=== PATIENT | male | born 1955 ===

== ENCOUNTER 2022-05-02 07:09 | Outpatient (CLI) | payer BC, SELFPAY ==
[2022-05-02 07:59] LABS: Hemoglobin A1C 5.6 % (<5.7)
== END 2022-05-02 07:10 | disposition home or self-care (01) ==
PROVIDERS: PCP Family Medicine; Visit Provider Nurse Practitioner Family
DX: R73.09 Other abnormal glucose (principal)
CPT/HCPCS: 36415; 83036